=== PATIENT | female | born 1980 | race Caucasian/White ===

== ENCOUNTER 2016-10-11 08:31 | Observation (INO) ==
[2016-10-11 10:13] LABS: Basophils % 0.3 % (0.0-0.8); Eosinophils # 0.1 10*3/uL (0.0-0.87); Eosinophils % 0.9 % (0.00-10.9); Hematocrit 38.4 VOL% (35.7-47.0); Immature Granulocytes % 0.8 %; Immature Granulocytes Absolute 0.08 #; Lymphocytes # 2.5 10*3/uL (1.4-4.0); Lymphocytes % 23.9 % (21.3-54.2); Mean Corpuscular HGB Conc 33.9 GM/DL (32-36); Mean Corpuscular Hemoglobin 30 PG (27-34); Mean Corpuscular Volume 88.5 FL (87-102); Monocytes # 0.8 10*3/uL (0.11-0.8); Monocytes % 7.5 % (1.7-12.7); Neutrophils % 66.6 % (38.7-73.9); Platelet Count 265 T/CUMM (130-400); Red Blood Count 4.34 MC/CUMM (3.8-5.5); Red Cell Distribution Width 13.3 % (9.3-17.3); White Blood Count 10.4 T/CUMM (4-12)
--- NOTE | 2016-10-11 10:28 | XRay Report ---
Portable chest Date: 10/11/2016 Clinical history: Chest pain Comparison: 04/20/2015 Technique: Portable AP sitting chest Findings: The heart is normal in size. Minimal atelectasis at the lung bases. Stable mediastinum and osseous structures. Impression: Minimal atelectasis at the lung bases. The heart remains normal in size. PROCEDURE INTERPRETED AT [facility] DEPARTMENT OF RADIOLOGY Final Report Signed by: Dr. Sherley Miranda
--- NOTE | 2016-10-11 10:33 | Emergency Department Note ---
ITony Brooke, am scribing for, and in the presence of, Rebekah Diaz DO 09:58 . IJoe Debra, DO, personally performed the services described in this documentation, ascribed by Tessa Jimenez in my presence, and it is both accurate and complete 032 . Arrival - Arrival Chief Complaint: Chest Pain Stated Complaint: sob ED Nursing Triage Note: pt c/o vomiting,headache, and right shoulder pain all day yesterday- reports vomited all night and while driving this morning pt states began having sharp chest pain and shortness of breath. 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 pt had EKG yesterday. Mode of Arrival: Ambulatory Limitations: No Limitations Source: Patient, RN Notes Reviewed Time Seen by Provider: 10/11/16 09:05 - History of Present Illness HPI Narrative: Patient is a 36 year old female who presents to the ED with c/o chest pain that started this morning. Patient says yesterday, she had left shoulder pain, headache, nausea, and vomiting. She says she took Phenergan for the nausea and started feeling better. Patient says this morning, she had a pain in the left side of her chest, shoulder, and neck that she describes as cramping. 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 She says the chest pain is almost gone now and it is a 3 out of 10 on the pain scale. She says she does currently have a headache. She says that her blood pressure was 82/50 yesterday and this morning it was 133/79. She also complains of having dizziness and "floaters" in her right eye and states she has been having these symptoms for the past couple of days. Patient has PMHx of hyperthyroidism. She denies any recent change in her thyroid medication. Patient does have a FHx of early AR. Her sister had a AR at 30 years old and her mother had one at 51 years old. Patient also has PMHx of anxiety and GERD. She is a smoker. Onset (ago): day(s) (1) Date of Last Menstrual Period: 2009 Allergies/Adverse Reactions: Allergies Allergy/AdvReac Type Severity Reaction Status Date / Time No Known Allergies Allergy Verified 10/11/16 08:39 Home Medications: Home Medications Medication Instructions Recorded Confirmed Type Citalopram [CeleXA] 20 mg PO DAILY 10/11/16 10/11/16 History Gabapentin 300 mg PO BEDTIME 10/11/16 10/11/16 History Pantoprazole Tab [Protonix Tab] 40 mg PO DAILY 10/11/16 10/11/16 History methIMAzole [Tapazole] 5 mg PO DAILY 10/11/16 10/11/16 History Review of System - Review of System 12 point system: reviewed and no additional remarkable complaints except as stated - Review of System Constitutional: Absent: fever Eyes: Present: other ("floaters" right eye) Respiratory: Absent: respiratory distress Cardiovascular: Present: chest pain (left side- cramping) Gastrointestinal: Present: nausea, vomiting Musculoskeletal: Present: neck pain (left side), other (left shoulder) Skin: Absent: rash Neurological: Present: headache, other (dizziness) Medical,Surgical,& Family Hx - Medical History Psychological: History of: Anxiety Disorders Endocrine: History of: Thyroid Disorder Gastrointestinal: History of: GERD - Surgical History HEENT Surgeries: Surgical HX of: Thyroid Surgery - Social History Smoking Status: Never smoker Frequency of Alcohol Use: None Type of Drug Use: None Exam Vital Signs: Vital Signs Temperature 98.3 F 10/11/16 10:34 Pulse Rate 63 10/11/16 10:34 Respiratory Rate 18 10/11/16 10:34 Blood Pressure 103/65 10/11/16 10:34 O2 Sat by Pulse Oximetry 100 10/11/16 09:30 - General General appearance: alert, in no apparent distress - Head Head exam: Present: atraumatic, normocephalic - Eye Eye exam: Present: normal appearance, PERRL, EOMI - ENT ENT exam: Present: normal exam - Neck Neck exam: Present: normal inspection - Chest Chest inspection: Present: normal inspection, symmetric chest wall rise - Respiratory Respiratory exam: Present: normal lung sounds bilaterally - Cardiovascular Cardiovascular exam: Present: normal rhythm, bradycardia, normal heart sounds - Abdominal Exam Abdominal exam: Present: soft. Absent: distention, tenderness - Extremities Exam Extremities exam: Present: normal inspection - Back Exam Back exam: Present: normal inspection - Neurological Exam Neurological exam: Present: alert, oriented X3 - Psychiatric Psychiatric exam: Present: normal affect, normal mood - Skin Skin exam: Present: warm, dry, intact, normal color Course Course Narrative: spoke with Hospitalist service who will admit pt. due to pts risk factors, smoking, and family hx, 2 sisters in their 30's had mi's , will admit pt for rule out cardiac disease Results - Labs CBC & BMP: 10/11/16 09:54 10/11/16 09:54 Lab Results: I have reviewed the patients labs Labs: Laboratory Tests 10/11/16 09:54 D-Dimer, Quantitative <= 0.5 - EKG EKG results: interpreted by IRMA, WNL, sinus rhythm - Diagnostic Findings Procedure: Chest x-ray: report reviewed by me (Minimal atelectasis at the lung bases. The heart remains normal in size.) Disposition Clinical Impression: Chest pain Case discussed with: patient Disposition: Still a Patient Condition: Stable Time of Disposition: 11:04
--- NOTE | 2016-10-11 10:46 | EKG Report ---
Stationary ECG Study [facility] ER Test Date: 10/11/2016 8:41:40 AM Pat Name: ALYSSA CHAO Department: Room: Gender: F Human Resources Recruiter: : 1980 Requested by: Rebekah Diaz Order Number: [id number] Reading MD: MATHEW ZAPATA Intervals [place] Rate: 63 P: 72 [place]: 149 QRS: 52 QRSD: 86 T: 35 QT: 419 QTc: 427 Interpretive Statements SINUS RHYTHM NONSPECIFIC T WAVE ABNORMALITY Electronically Signed On 10-14-16 16:18:52 CDT by MATHEW ZAPATA [email or web address]
[2016-10-11 10:53] LABS: Alanine Aminotransferase 27 U/L (13-56); Albumin 3.9 G/DL (3.4-5.0); Alkaline Phosphatase 91 U/L (45-117); Aspartate Amino Transferase 23 U/L (0-37); Bilirubin,Total < 0.39 MG/DL (0.2-1.0); Blood Urea Nitrogen 15 MG/DL (7-18); Calcium 9.1 MG/DL (8.5-10.1); Free T4 (Free Thyroxine) 1.01 NG/DL (0.76-1.46); Glucose 85 MG/DL (74-106); Osmolality,Calculated 280.3 MOS/KG (273-304); Potassium 4.1 MMOL/L (3.5-5.1); Sodium 141 MMOL/L (136-145); Troponin I Only < 0.015 NG/ML (0.00-0.045)
--- NOTE | 2016-10-11 12:12 | Hospitalist History & Physical ---
<Richie Ballard - Last Filed: 10/11/16 12:27> Assessment and Plan (1) Chest pain Status: Acute Assessment and plan: Admit for observation. Serial troponins and EKGs. Cardiac monitoring. Consult cardiology for rec. Stress test. Current Visit: Yes History of Present Illness Chief complaint: Chest pain History of present illness: Ms. Reyes is a 36-year-old white female patient who presents to the ED today with complaints of chest pain. Patient states that 2 days ago she began to have headaches and that she was also experiencing some nausea, vomiting, diarrhea. Yesterday the patient states that the discomfort worsened. She also became dizzy and lightheaded. This morning while on the way to work, Ms. Reyes stated that she began to have some chest pain on the right side that radiated towards the left side and into her neck and shoulder. Patient described the pain as sharp and breath taking. 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 Once there she was given 1 nitro by the IN STORE DEMONSTRATOR in her clinic ([facility]) and the pain resolved. The patient was then sent to the ED for further eval. Pt. denies ever having pain similiar to this before. Pt. does have a positive family history. Her mom had a heart attack at 58 and her grandmother from a massive heart attack. Pt. is a smoker but denies alcohol or drug abuse. She takes a PPI, gabapentin and Celexa daily. CXR was unremarkable and troponins are negative. Due to patient's strong family history, pt. will be admitted for observation and workup. Home Medications Medication Instructions Recorded Confirmed Type Citalopram [CeleXA] 20 mg PO DAILY 10/11/16 10/11/16 History Gabapentin 300 mg PO BEDTIME 10/11/16 10/11/16 History Nicotine 21 mg/24 Hr Patch 1 patch TRANSDERM DAILY #42 patch 10/11/16 Rx [Nicoderm CQ 21 mg/24 hr Patch] Pantoprazole Tab [Protonix Tab] 40 mg PO BID #60 tablet 10/11/16 Rx methIMAzole [Tapazole] 5 mg PO DAILY 10/11/16 10/11/16 History Allergies Allergy/AdvReac Type Severity Reaction Status Date / Time No Known Allergies Allergy Verified 05/12/17 08:39 Medical,Surgical,& Family Hx - Medical History Psychological: History of: Anxiety Disorders Endocrine: History of: Thyroid Disorder Gastrointestinal: History of: GERD - Surgical History HEENT Surgeries: Surgical HX of: Thyroid Surgery - Family History Family History: Reports;: Family Heart Disease - Social History Smoking Status: Current every day smoker Frequency of Alcohol Use: None Type of Drug Use: None Marital Status: Lives With:: Spouse Functional capacity: independent ambulation - Constitutional Constitutional: Present: headache(s). Absent: fever(s) - EENT Eyes: Present: blurry vision, requires corrective lense Ears: Absent: decreased hearing, ear discharge Nose, mouth and throat: Present: headache(s). Absent: sore throat - Cardiovascular Cardiovascular: Present: chest pain at rest, dyspnea, lightheadedness. Absent: edema - Respiratory Respiratory: Absent: cough, wheezing - Gastrointestinal Gastrointestinal: Present: diarrhea, nausea, vomiting - Genitourinary Genitourinary: Absent: difficulty urinating, hematuria - Musculoskeletal Musculoskeletal: Absent: back pain, joint swelling - Neurological Neurological: Present: dizziness, headache(s). Absent: confusion, numbness - Psychiatric Psychiatric: Present: anxiety. Absent: confusion - Endocrine Endocrine: Present: heat intolerance Exam - Constitutional Vitals: Period Temp Pulse Resp BP Sys/Cabello Pulse Ox Last 24 Hr 48-54 18-18 96-97/62-71 100-100 General appearance: normal weight, no acute distress - Head Head exam: Present: normal inspection, normocephalic - Eye Eye exam: Present: EOMI. Absent: periorbital swelling Pupils: Present: TY. Absent: dilated - ENT ENT exam: Present: normal exam - Neck Neck exam: Present: normal inspection - Respiratory Respiratory exam: Present: clear to auscultation bilaterally. Absent: wheezes - Cardiovascular Cardiovascular exam: Present: bradycardia - GI/Abdominal GI/Abdominal exam: Present: normal bowel sounds, soft. Absent: tenderness - Extremities Exam Extremities exam: Present: normal capillary refill, full ROM. Absent: edema - Neurological Exam Neurological exam: Present: alert, oriented X3, normal gait - Psychiatric Psychiatric exam: Present: normal affect, anxious - Skin Skin exam: Present: normal color, warm, dry Results - Labs CBC & BMP: 10/11/16 09:54 10/11/16 09:54 Lab Results: I have reviewed the past 24 hour labs - Diagnostic Findings Procedure: Chest x-ray: report reviewed by me (Minimal atelectasis at the bases the heart is normal in size.) <Suma Julien Ira - Last Filed: 10/11/16 17:49> Assessment and Plan (1) Chest pain Status: Acute Assessment and plan: Cardiac stress test. Cardiology consult. Serial troponins. Current Visit: Yes (2) Family history of premature CAD Status: Chronic Current Visit: Yes (3) Tobacco abuse Status: Chronic Assessment and plan: Nicotine patch Current Visit: Yes History of Present Illness History of present illness: Ms. Reyes is a 36 year old female seen and examined. History and physical reviewed and edited. Spoke with Pippa teresa and arrange for cardiac stress test this morning. - Hematologic/Lymphatic Hematologic/Lymphatic: Absent: easy bleeding, easy bruising Exam - Constitutional Vitals: Period Temp Pulse Resp BP Sys/Cabello Pulse Ox Last 24 Hr 97.5 F-98 F 48-60 18-18 92-106/53-71 100-100 - Neurological Exam Neurological exam: Present: CN II-XII intact, reflexes normal. Absent: motor sensory deficit Results - Labs CBC & BMP: 10/11/16 09:54 10/11/16 09:54 - EKG EKG shows: sinus rhythm
[2016-10-11] MEDS ORDERED: NICOTINE 21 MG/24 HR PATCH TRANSDERM SCH (12:30)
[2016-10-11 12:35] LABS: Apearance,Urine Slightly Hazy (Clear); Bacteria,Urine Few /HPF (Few); Bilirubin,Urine Negative (Negative); Blood, Urine Negative (Negative); Glucose,Urine (UA) Negative (Negative); Ketones,Urine Negative (Negative); Mucus,Urine Many /LPF (Occasional); Nitrite,Urine Negative (Negative); Protein,Urine Negative; RBC,Urine 3 /HPF (0-4); Squamous Epithelial Cell,Urine Occasional /HPF (0-10); Urine Color Yellow (Yellow); Urine Urobilinogen < 2.0 EU/DL (0.2-1.0); WBC,Urine 1 /HPF (0-6)
--- NOTE | 2016-10-11 13:02 | Cardiology Consult Note ---
<Pippa Dale - Last Filed: 10/11/16 13:02> Assessment and Plan - Time spent with patient Time spent with patient: Greater than 30 minutes (1) Family history of premature CAD Status: Chronic Assessment and plan: SEE PLAN OF CARE LISTED BELOW Current Visit: Yes (2) Tobacco abuse Status: Chronic Assessment and plan: SEE PLAN OF CARE LISTED BELOW Current Visit: Yes (3) Chest pain Status: Acute Assessment and plan: SEE PLAN OF CARE LISTED BELOW Current Visit: Yes History of Present Illness - Data of Consult Patient: new to practice Consult date: 10/11/16 Requesting Physician: Suma Julien Primary care physician: Gilberto New - Consult Narrative Reason for consult: chest pain 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 GILBERTO NEW Ms. Reyes,36WF, has the following risk factors: family history of premature coronary artery disease (mother had first AZ at age 52), tobaccoism. Yesterday patient felt poorly throughout the day. "Sluggish" and "nauseated with diarrhea" intermittently throughout the day. This morning, she had an abrupt onset of right sided chest pain she describes as sharp and stabbing. It took her breath away. Rates as 9 on a scale of 1-10. It then radiated to her left chest area and shoulder began aching with movement. Patient reports taking a deep breath and certain movements made this worse. 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 She received a nitroglycerine and now has a severe headache. Chest pain free at this time. CIE negative. EKG unremarkable. D-dimer is negative. History of hyperthyroidism and since surgical treatment in 2006 she has had hoarseness. No prior history of hyperlipidemia. Reports BP usually runs low as does her heart rate. SHe runs on treadmill most days and can perform her activities without chest pain, heaviness or tightness. ASSESSMENT/PLAN: 1. CHEST PAIN - NPO for stress testing this morning. Suspect this may be musculoskeletal in nature. Consider PTE however d-dimer negative. Should patient receive favorable results from today's stress test, I will arrange for her to see Dr. Serna for routine follow-up given the significant premature CAD in her family. 2. TOBACCOSIM - reinforced the merits of tobacco cessation for greater than 5 minutes. 3. FAMILY HISTORY OF PREMATURE CAD - mother had AZ at 52. MGM also had heart problems at a young age. - CC: Suma Julien MD - Home Medications and Allergies Home Medications: Home Medications Medication Instructions Recorded Confirmed Type Citalopram [CeleXA] 20 mg PO DAILY 10/11/16 10/11/16 History Gabapentin 300 mg PO BEDTIME 10/11/16 10/11/16 History Pantoprazole Tab [Protonix Tab] 40 mg PO DAILY 10/11/16 10/11/16 History methIMAzole [Tapazole] 5 mg PO DAILY 10/11/16 10/11/16 History Allergies/Adverse Reactions: Allergies Allergy/AdvReac Type Severity Reaction Status Date / Time No Known Allergies Allergy Verified 10/11/16 08:39 - Constitutional Constitutional: Present: fatigue, headache(s), weakness. Absent: chills, fever( s), lethargy - EENT Eyes: Absent: blurry vision, loss of vision Ears: Absent: decreased hearing, ear pain Nose, mouth and throat: Present: headache(s), hoarseness. Absent: epistaxis, neck mass, sore throat - Cardiovascular Cardiovascular: Present: chest pain at rest, radiating jaw, neck or arm pain. Absent: chest pain with activity, dyspnea on exertion, edema, palpitations - Respiratory Respiratory: Present: pain on inspiration. Absent: cough, dyspnea, dyspnea on exertion, snoring - Gastrointestinal Gastrointestinal: Present: diarrhea, nausea. Absent: abdominal pain - Genitourinary Genitourinary: Absent: dysuria, hematuria, urinary hesitancy - Musculoskeletal Musculoskeletal: Absent: back pain, limited range of motion, muscle cramps - Neurological Neurological: Absent: abnormal gait, abnormal speech, behavioral changes - Psychiatric Psychiatric: Absent: auditory hallucinations, confusion, memory loss - Endocrine Endocrine: Present: fatigue. Absent: cold intolerance, polydipsia, polyphagia - Hematologic/Lymphatic Hematologic/Lymphatic: Absent: easy bleeding, easy bruising, lymphadenopathy Medical,Surgical,& Family Hx - Medical History Cardio: No history of: CAD, Hypertension, AZ Psychological: History of: Anxiety Disorders Endocrine: History of: Thyroid Disorder Gastrointestinal: History of: GERD - Surgical History HEENT Surgeries: Surgical HX of: Thyroid Surgery - Family History Family History: Reports;: Family Heart Disease - Social History Smoking Status: Current every day smoker Have you smoked in the last 12 months: Yes Time spent discussing smoking cessation with patient: 3 to 10 minutes Frequency of Alcohol Use: None Type of Drug Use: None Physical Examination Vital Signs Temp Pulse Resp BP Pulse Ox 98.3 F 67 18 100/69 97 10/11/16 08:34 10/11/16 08:34 10/11/16 08:34 10/11/16 08:34 10/11/16 08:34 General: Present: Appears Well, No Apparent Distress HEENT: Present: PERRL, Normocephaly, Mucus Membranes Moist Neck: Present: Midline Trachea, No Masses, Other (well-healed scar at base of neck) Cardiac: Present: Regular Rate, Regular Rhythm, No Murmur Lungs: Present: Normal Breath Sounds. Absent: Oxygen Neuro: Present: Cranial Nerve 2-12 Intact, Grossly Intact. Absent: Resting Tremor Abdomen: Present: Soft, Active Bowel Sounds. Absent: Splenomegaly Skin: Present: Clear, Cool, Moist. Absent: Rash Extremities: Present: No Clubbing, No Cyanosis, No Edema, Normal Upper Extr. Pulses, Normal Lower Extr. Pulses Result/EKG - Labs CBC & BMP: 10/11/16 09:54 10/11/16 09:54 Lab Results: I have reviewed the past 24 hour labs - Diagnostic Findings Procedure: Chest x-ray: report reviewed by il - EKG EKG results: interpreted by il EKG shows: sinus rhythm <Santos Mcpherson - Last Filed: 10/11/16 15:56> History of Present Illness - Consult Narrative History of present illness: Patient personally interviewed and examined and chart reviewed. Discussed case with Pippa Dale NP. Agree with evaluation and assessment and plan. In addition and summation Ms. Reyes is a 36 year old female who was admitted with left-sided chest pain arm pain neck pain that is exacerbated by motion deep breath cough. She is very tender in her left chest that reproduces her pain. Her cardiac enzymes are non-detectable. Her ECG is normal. Her stress ECG is unremarkable. She has had a cardiac perfusion study which I am waiting for the results of. Her exam is unremarkable as are noted except for left sided chest wall pain. She has no edema. Lungs are clear. Abdomen is benign. If her cardiac perfusion study is negative she can be discharged. She would not need any further cardiac evaluation. CC: Suma Julien MD Physical Examination Vital Signs Temp Pulse Resp BP Pulse Ox 98.3 F 67 18 100/69 97 10/11/16 08:34 10/11/16 08:34 10/11/16 08:34 10/11/16 08:34 10/11/16 08:34 Result/EKG - Labs CBC & BMP: 10/11/16 09:54 10/11/16 09:54 Labs: Laboratory Results - last 24 hr 10/11/16 15:03 Troponin I < 0.015
--- NOTE | 2016-10-11 13:28 | Event Note ---
Patient achieved THR without difficulty. No chest pain with exertion. No worrisome ST changes. Occasional unifocal PVC. Blood pressure responded appropriately. Dr. Kaye to read, interpret and advise.
--- NOTE | 2016-10-11 15:19 | EKG Report ---
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
[2016-10-11 16:26] VITALS: BP 106/68
--- NOTE | 2016-10-11 16:37 | Discharge Summary ---
Hospital Course - Hospital Course Hospital Course: 36-year-old female admitted to this morning with complaints of chest pain. Serial troponins were negative. Lipid panel will need to be drawn as an outpatient. Cardiology Dr. Kaye was consulted. Stress test was performed and read as negative. Patient says she wants to quit smoking and we will provide her with nicotine patches. Patient says she has a history of GERD and already takes Protonix we will increase the Protonix to twice a day. Patient stable to send home follow-up with Dr. Kaye in 2 weeks. - Time spent with patient Time with patient DS: Less than 30 minutes (25 min) Discharge Plan - Discharge Data Disposition: Disch To Home/Self Care Condition at Discharge: Stable Discharge Diet: heart healthy Activity: resume usual activities as tolerated Hygiene: no restrictions Weight Bearing at Discharge: full weight bearing - Discharge Medications New Nicotine 21 mg/24 Hr Patch [Nicoderm CQ 21 mg/24 hr Patch] 1 patch TRANSDERM DAILY #42 patch Continue Citalopram [CeleXA] 20 mg PO DAILY Gabapentin 300 mg PO BEDTIME methIMAzole [Tapazole] 5 mg PO DAILY Pantoprazole Tab [Protonix Tab] 40 mg PO BID #60 tablet - Follow Up or Referral Follow Up: Reid Kaye MD [Physician] - 2 Weeks - Forms/Instructions Exam - Constitutional Vitals: Period Temp Pulse Resp BP Sys/Cabello Pulse Ox Last 24 Hr 97.5 F-98 F 48-60 18-18 92-106/53-71 100-100 Discharge Results Procedures and tests throughout hospitalization: Pending Orders 10/11/16 12:03 NM odell perf SPECT rest or str Stat 10/11/16 18:15 Troponin I Only Q3H 10/12/16 04:00 Basic Metabolic Panel IN AM Comp Blood Count Auto Diff IN AM Lipid Panel IN AM Labs on day of discharge: Labs from last 24 hours 10/11/16 15:03 Troponin I < 0.015 DS: Provider Date of admission: 10/11/16 11:11 Primary care physician: . No PCP Attending physician on admission: Suma Julien MD Consults: 10/11/16 12:03 Consult to Physician [CONS] Routine Comment: chest pain, discussed with Pippa Consulting Provider: Santos Mcpherson When should Consulting Provider be notified: Now Discharging clinician: Suma Julien MD
[2016-10-11] MEDS ORDERED: ROSUVASTATIN 10 MG TABLET PO SCH (21:00)
--- NOTE | 2016-10-11 22:28 | Nuclear Medicine Report ---
MYOCARDIAL PERFUSION SCAN DATE: 10/11/2016 BRIEF CLINICAL SUMMARY: Ms. Reyes is a 36-year-old with uncertain history of present illness. EXERCISE MYOCARDIAL PERFUSION SCAN WITH GATING: The patient was injected with 10 mCi of Sestamibi b efore being sent for resting images to be obtained. The patient was then placed on a treadmill wher e she achieved target heart rate with no chest discomfort or EKG changes. She had occasional PVCs. She appeared to have mild nonsignificant upsloping ST depression. She appears to completed at leas t 8 minutes on a Wenceslao protocol. At peak exercise, she injected with 30 mCi of Sestamibi and was la ter sent for resting images to be obtained. The 3-D orthogonal reconstruction view shows no perfusion abnormality whatsoever. There is modest a mount of extra cardiac radiotracer uptake adjacent and contiguous with the inferobasal wall particul steffanie in the rest images that shown vertical axis. The raw data in cine mode shows modest patient motion with modest subdiaphragmatic artifact. The gated stress images shows normal LV systolic function with ejection fraction estimated to be 69% The wall motion is normal by regional wall motion analysis with normal end-diastolic volume. IMPRESSION: 1. CLINICALLY AND ELECTROCARDIOGRAPHICALLY NORMAL EXERCISE TREADMILL TEST WITH GOOD EXERCISE TOLERA NCE. 2. SCINTIGRAPHICALLY NORMAL MYOCARDIAL PERFUSION. 3. NORMAL LEFT VENTRICULAR SYSTOLIC FUNCTION WITH EJECTION FRACTION ESTIMATED TO BE 69%. 4. WALL MOTION BY REGIONAL WALL MOTION ANALYSIS WITH NORMAL END-DIASTOLIC VOLUME. DISPOSITION: This is a low-risk study that does not suggest the presence of significant coronary is chemia. The patient's treadmill performance and ejection fraction are also encouraging with regard to cardiovascular prognosis. Procedure performed and interpreted at [facility] Department of Radiology.
[2016-10-12] MEDS ORDERED: ASPIRIN EC 325 MG TABLET PO SCH (09:00)
== END 2016-10-11 19:00 | disposition home or self-care (01) ==
LOC: N.EDINP 08:31 → N.ED 08:31 → N.EDINP 12:40 → N.TELEN 13:54
PROVIDERS: ADMIT Internal Medicine; ATTEND Internal Medicine